=== PATIENT | female | born 1980 ===

== ENCOUNTER 2017-03-28 22:37 | Emergency (ER) | payer BC ==
[2017-03-28] MEDS ORDERED: Sodium Chloride 0.9% 10 ML Syringe FLUSH PRN (23:03)
[2017-03-28] MEDS ORDERED: Sodium Chloride 0.9% 1,000 ML IV ONE (23:03)
[2017-03-28] MEDS ORDERED: Ondansetron 4 MG/2 ML SDV IVPUSH ONE (23:03)
[2017-03-28] MEDS ORDERED: Sodium Chloride 0.9% 2.5 ML Syringe FLUSH PRN (23:03)
[2017-03-28] MEDS ORDERED: HYDROmorphone 2 MG/ML Syringe IVPUSH ONE (23:03)
--- NOTE | 2017-03-28 23:07 | EDM.PDOC ---
ED HPI GENERAL MEDICAL PROBLEM - General Chief Complaint: Abdominal Pain Stated Complaint: LOWER ABDOMINAL/VAGINAL PAIN Time Seen by Provider: 03/28/17 23:01 - History of Present Illness INITIAL COMMENTS - FREE TEXT/NARRATIVE: HISTORY AND PHYSICAL: History of present illness: Patient 36-year-old female presents with concern of 2 days of right lower quadrant abdominal pain she said associated nausea no vomiting no fever chills she denies trauma denies irregular bleeding vaginal discharge or urinary symptoms. She had no prior surgeries Review of systems: As per history of present illness and below otherwise all systems reviewed and negative. Past medical history: As per history of present illness and as reviewed below otherwise noncontributory. Surgical history: As per history of present illness and as reviewed below otherwise noncontributory. Social history: No reported history of drug or alcohol abuse. Family history: As per history of present illness and as reviewed below otherwise noncontributory. Physical exam: HEENT: Atraumatic, normocephalic, pupils reactive, negative for conjunctival pallor or scleral icterus, mucous membranes moist, throat clear, neck supple, nontender, trachea midline. Lungs: Clear to auscultation, breath sounds equal bilaterally, chest nontender. Heart: S1S2, regular, negative for clicks, rubs, or JVD. Abdomen: Soft, nondistended, tenderness in the right lower quadrant to deep palpation no rebound no guarding. Negative for masses or hepatosplenomegaly. Negative for costovertebral tenderness. Pelvis: Stable nontender. Genitourinary: Deferred. Rectal: Deferred. Extremities: Atraumatic, negative for cords or calf pain. Neurovascular unremarkable. Neuro: Awake, alert, oriented. Cranial nerves II through XII unremarkable. Cerebellum unremarkable. Motor and sensory unremarkable throughout. Exam nonfocal. Diagnostics: CBC CMP UA CT abdomen and pelvis with IV contrast Therapeutics: Normal saline 1 L bolus Zofran 4 mg IV Dilaudid 1 mg IV Impression: #1 right lower quadrant abdominal pain Definitive disposition and diagnosis as appropriate pending reevaluation and review of above. - Related Data Allergies Allergy/AdvReac Type Severity Reaction Status Date / Time No Known Allergies Allergy Verified 03/28/17 22:54 Home Meds: Home Meds . [No Known Home Meds] 03/28/17 [History] ED ROS GENERAL - Review of Systems Review Of Systems: ROS reveals no pertinent complaints other than HPI. ED EXAM, GENERAL - Physical Exam Exam: See Below (See dictation) Course - Vital Signs Last Recorded V/S: Last Vital Signs Temp 36.7 C 03/28/17 22:56 Pulse 98 03/28/17 22:56 Resp 14 03/28/17 22:56 BP 145/89 H 03/28/17 22:56 Pulse Ox 100 03/28/17 22:56 - Orders/Labs/Meds Orders: Active Orders 24 hr Category Date Time Status Abdomen Pelvis w Cont [CT] Stat Exams 03/28/17 23:03 Taken Pelvis Non OB Comp [US] Stat Exams 03/29/17 01:26 Taken CULTURE URINE [RM] Stat Lab 03/28/17 23:35 Received Sodium Chloride 0.9% [Saline Flush] Med 03/28/17 23:03 Active 10 ml FLUSH ASDIRECTED PRN Sodium Chloride 0.9% [Saline Flush] Med 03/28/17 23:03 Active 2.5 ml FLUSH ASDIRECTED PRN Saline Lock Insert [OM.PC] Stat Oth 03/28/17 23:03 Ordered Medication Orders Sodium Chloride (Saline Flush) 10 ml FLUSH ASDIRECTED PRN PRN Reason: Keep Vein Open Sodium Chloride (Saline Flush) 2.5 ml FLUSH ASDIRECTED PRN PRN Reason: Keep Vein Open Labs: Laboratory Tests 03/28/17 03/28/17 03/28/17 Range/Units 23:12 23:12 23:12 WBC 7.29 (4.0-11.0) K/uL RBC 4.27 L (4.30-5.90) M/uL Hgb 12.3 (12.0-16.0) g/dL Hct 35.7 L (36.0-46.0) % MCV 83.6 (80.0-98.0) fL MCH 28.8 (27.0-32.0) pg MCHC 34.5 (31.0-37.0) g/dL RDW Std Deviation 36.7 (28.0-62.0) fl RDW Coeff of Ledy 12 (11.0-15.0) % Plt Count 312 (150-400) K/uL MPV 9.30 (7.40-12.00) fL Neut % (Auto) 43.4 L (48.0-80.0) % Lymph % (Auto) 45.0 H (16.0-40.0) % Sanders % (Auto) 7.4 (0.0-15.0) % Eos % (Auto) 3.8 (0.0-7.0) % Baso % (Auto) 0.4 (0.0-1.5) % Neut # (Auto) 3.2 (1.4-5.7) K/uL Lymph # (Auto) 3.3 H (0.6-2.4) K/uL Sanders # (Auto) 0.5 (0.0-0.8) K/uL Eos # (Auto) 0.3 (0.0-0.7) K/uL Baso # (Auto) 0.0 (0.0-0.1) K/uL Nucleated RBC % 0.0 /100WBC Nucleated RBCs # 0 K/uL Sodium 137 (136-146) mmol/L Potassium 3.4 L (3.5-5.1) mmol/L Chloride 106 (98-110) mmol/L Carbon Dioxide 22 (21-31) mmol/L BUN 12 (6.0-23.0) mg/dL Creatinine 0.7 (0.6-1.5) mg/dL Est Cr Clr Drug Dosing 93.68 mL/min Estimated GFR (MDRD) > 60.0 ml/min Glucose 97 (60-110) mg/dL Calcium 9.2 (8.8-10.8) mg/dL Total Bilirubin 0.3 (0.1-1.5) mg/dL AST 15 (5-40) IU/L ALT 12 (8-54) IU/L Alkaline Phosphatase 55 (40-150) Total Protein 7.9 (6.0-8.0) g/dL Albumin 4.1 (3.5-5.0) g/dL Globulin 3.8 H (2.0-3.5) g/dL Albumin/Globulin Ratio 1.1 L (1.3-2.8) HCG, Qual NEGATIVE (NEG) Urine Color Urine Appearance Urine pH (5.0-8.0) Ur Specific Richardson (1.001-1.035) Urine Protein (NEGATIVE) mg/dL Urine Glucose (UA) (NEGATIVE) mg/dL Urine Ketones (NEGATIVE) mg/dL Urine Occult Blood (NEGATIVE) Urine Nitrite (NEGATIVE) Urine Bilirubin (NEGATIVE) Urine Urobilinogen (<2.0) EU/dL Ur Leukocyte Esterase (NEGATIVE) Urine RBC (0-2/HPF) Urine WBC (0-5/HPF) Ur Epithelial Cells (NONE-FEW) Urine Bacteria (NEGATIVE) 03/28/17 Range/Units 23:35 WBC (4.0-11.0) K/uL RBC (4.30-5.90) M/uL Hgb (12.0-16.0) g/dL Hct (36.0-46.0) % MCV (80.0-98.0) fL MCH (27.0-32.0) pg MCHC (31.0-37.0) g/dL RDW Std Deviation (28.0-62.0) fl RDW Coeff of Ledy (11.0-15.0) % Plt Count (150-400) K/uL MPV (7.40-12.00) fL Neut % (Auto) (48.0-80.0) % Lymph % (Auto) (16.0-40.0) % Sanders % (Auto) (0.0-15.0) % Eos % (Auto) (0.0-7.0) % Baso % (Auto) (0.0-1.5) % Neut # (Auto) (1.4-5.7) K/uL Lymph # (Auto) (0.6-2.4) K/uL Sanders # (Auto) (0.0-0.8) K/uL Eos # (Auto) (0.0-0.7) K/uL Baso # (Auto) (0.0-0.1) K/uL Nucleated RBC % /100WBC Nucleated RBCs # K/uL Sodium (136-146) mmol/L Potassium (3.5-5.1) mmol/L Chloride (98-110) mmol/L Carbon Dioxide (21-31) mmol/L BUN (6.0-23.0) mg/dL Creatinine (0.6-1.5) mg/dL Est Cr Clr Drug Dosing mL/min Estimated GFR (MDRD) ml/min Glucose (60-110) mg/dL Calcium (8.8-10.8) mg/dL Total Bilirubin (0.1-1.5) mg/dL AST (5-40) IU/L ALT (8-54) IU/L Alkaline Phosphatase (40-150) Total Protein (6.0-8.0) g/dL Albumin (3.5-5.0) g/dL Globulin (2.0-3.5) g/dL Albumin/Globulin Ratio (1.3-2.8) HCG, Qual (NEG) Urine Color YELLOW Urine Appearance CLEAR Urine pH 6.0 (5.0-8.0) Ur Specific Richardson <= 1.005 (1.001-1.035) Urine Protein NEGATIVE (NEGATIVE) mg/dL Urine Glucose (UA) NEGATIVE (NEGATIVE) mg/dL Urine Ketones NEGATIVE (NEGATIVE) mg/dL Urine Occult Blood NEGATIVE (NEGATIVE) Urine Nitrite NEGATIVE (NEGATIVE) Urine Bilirubin NEGATIVE (NEGATIVE) Urine Urobilinogen 0.2 (<2.0) EU/dL Ur Leukocyte Esterase MODERATE (NEGATIVE) Urine RBC 0-2 (0-2/HPF) Urine WBC 0-4 (0-5/HPF) Ur Epithelial Cells OCCASIONAL (NONE-FEW) Urine Bacteria FEW (NEGATIVE) Meds: Medications Generic Name Dose Route Start Last Admin Trade Name Freq PRN Reason Stop Dose Admin Sodium Chloride 10 ml 03/28/17 23:03 Saline Flush FLUSH ASDIRECTED PRN Keep Vein Open Sodium Chloride 2.5 ml 03/28/17 23:03 Saline Flush FLUSH ASDIRECTED PRN Keep Vein Open Discontinued Medications Generic Name Dose Route Start Last Admin Trade Name Freq PRN Reason Stop Dose Admin Hydromorphone HCl 1 mg 03/28/17 23:03 03/28/17 23:30 Dilaudid IVPUSH 03/28/17 23:04 1 mg ONETIME ONE Administration Sodium Chloride 1,000 mls @ 999 mls/hr 03/28/17 23:03 03/28/17 23:28 Normal Saline IV 03/29/17 00:03 999 mls/hr STAT ONE Administration Iopamidol 70 ml 03/29/17 00:13 03/29/17 00:13 Isovue Multipack-370 (76%) IVPUSH 03/29/17 00:14 70 ml ONETIME STA Administration Ondansetron HCl 4 mg 03/28/17 23:03 03/28/17 23:29 Hellen IVPUSH 03/28/17 23:04 4 mg ONETIME ONE Administration Departure - Departure Time of Disposition: 02:38 Disposition: Home, Self-Care 01 Condition: Good Clinical Impression: Ovarian cyst - Discharge Information Referrals: Dalila Álvarez MD [Primary Care Provider] - Forms: ED Department Discharge Additional Instructions: The following information is given to patients seen in the emergency department who are being discharged to home. This information is to outline your options for follow-up care. We provide all patients seen in our emergency department with a follow-up referral. The need for follow-up, as well as the timing and circumstances, are variable depending upon the specifics of your emergency department visit. If you don't have a primary care physician on staff, we will provide you with a referral. We always advise you to contact your personal physician following an emergency department visit to inform them of the circumstance of the visit and for follow-up with them and/or the need for any referrals to a consulting specialist. The emergency department will also refer you to a specialist when appropriate. This referral assures that you have the opportunity for followup care with a specialist. All of these measure are taken in an effort to provide you with optimal care, which includes your followup. Under all circumstances we always encourage you to contact your private physician who remains a resource for coordinating your care. When calling for followup care, please make the office aware that this follow-up is from your recent emergency room visit. If for any reason you are refused follow-up, please contact the [facility] emergency department at and asked to speak to the emergency department charge nurse. [facility] Primary [facility] - Women's Health [address] [place] [id number] Hydrocodone as prescribed follow-up primary medical doctor and/or MANAGER RESIDENTIAL as discussed return as needed as discussed - My Orders Last 24 Hours: My Active Orders 03/28/17 23:03 Abdomen Pelvis w Cont [CT] Stat Sodium Chloride 0.9% [Saline Flush] 10 ml FLUSH ASDIRECTED PRN Sodium Chloride 0.9% [Saline Flush] 2.5 ml FLUSH ASDIRECTED PRN Saline Lock Insert [OM.PC] Stat 03/28/17 23:35 CULTURE URINE [RM] Stat 03/29/17 01:26 Pelvis Non OB Comp [US] Stat - Assessment/Plan Last 24 Hours: My Active Orders 03/28/17 23:03 Abdomen Pelvis w Cont [CT] Stat Sodium Chloride 0.9% [Saline Flush] 10 ml FLUSH ASDIRECTED PRN Sodium Chloride 0.9% [Saline Flush] 2.5 ml FLUSH ASDIRECTED PRN Saline Lock Insert [OM.PC] Stat 03/28/17 23:35 CULTURE URINE [RM] Stat 03/29/17 01:26 Pelvis Non OB Comp [US] Stat
[2017-03-28 23:43] LABS: CHLORIDE,CL 106 mmol/L (98-110); SODIUM,NA 137 mmol/L (136-146)
[2017-03-29] MEDS ORDERED: Iopamidol 755 MG/ML 500 ML Multipack Bottle IVPUSH STA (00:13)
[2017-03-29 02:40] VITALS: BP 123/71
--- NOTE | 2017-03-29 14:44 | CT ---
EXAM DATE: 03/28/17 PATIENT'S AGE: 36 Patient: NAVI SUBRAMANIAN Facility: [place], [place] Site . Site : 1980 Study: CT Abdomen/Pelvis W CONT [id number]/28/2017 12:31:14 AM Ordering Physician: Franky Rojo Final Report: INDICATION: Abdominal pain, right lower quadrant pain since . TECHNIQUE: CT abdomen and pelvis acquired with 70 mL of Isovue 370 IV contrast. COMPARISON: None. FINDINGS: Lower chest: Unremarkable. Liver: Unremarkable. Spleen: Unremarkable. Pancreas: Unremarkable. Gallbladder and bile ducts: Unremarkable. Kidneys: Unremarkable. Adrenal glands: Unremarkable. GI tract: Unremarkable. Appendix is normal. No free air. Vascular structures: Unremarkable. Lymph nodes: Unremarkable. Pelvic Organs: Collapsing cyst in the left ovary measures 1.5 cm. Uterus, bilateral adnexal regions and urinary bladder are otherwise unremarkable. Trace pelvic free fluid. Bones: No acute abnormality. IMPRESSION: No acute intra-abdominal or pelvic abnormality. Dictated by Ez Aranda MD @ 03/29/2017 1:03:03 AM Dictated by: Ez Aranda MD @ 03/29/2017 01:03:34 (Electronic Signature) Report Signed by Proxy. [facility]LAND[facility]
--- NOTE | 2017-03-29 15:08 | US ---
EXAM DATE: 03/28/17 PATIENT'S AGE: 36 Patient: NAVI SUBRAMANIAN Facility: [place], [place] Site . Site : 1980 Study: US Pelvis [id number]/28/2017 1:58:11 AM Ordering Physician: Franky Rojo Final Report: INDICATION: Abdominal pain. TECHNIQUE: Ultrasound pelvis transvaginal for better assessment or to better visualize the endometrium. Real-time sonographic images with spectral and color Doppler imaging of the ovaries were obtained. COMPARISON: CT abdomen pelvis same day. FINDINGS: Uterus measures 7.7 x 4.5 x 5.4 cm. No discrete uterine mass. Possible small fibroid in the posterior fundus. This measures approximately 1.3 cm. The endometrial stripe measures 13 mm. No endometrial mass or fluid demonstrated. Right ovary is 2.8 x 1.9 x 2.4 cm and is within normal limits. Normal-appearing color Doppler flow in the right ovary. Left ovary is 4 x 2.7 x 3.7 cm. A heterogeneous hypoechoic focus in the left ovary measures 1.4 cm. Normal- appearing color Doppler flow in the left ovary. Trace pelvic free fluid. IMPRESSION: Small collapsing cyst or follicle in the left ovary measuring 1.4 cm. Possible small fibroid in the posterior uterine fundus. Otherwise unremarkable pelvic ultrasound. Dictated by Ez Aranda MD @ 03/29/2017 2:08:41 AM Dictated by: Ez Aranda MD @ 03/29/2017 02:08:55 (Electronic Signature) Report Signed by Proxy. MOLLY
== END 2017-03-29 02:46 | disposition home or self-care (01) ==
LOC: MW.ED 22:37
DX: N83.202 Unspecified ovarian cyst, left side (principal)
CPT/HCPCS: 36415; 74177; 76856; 80053; 81001; 84703; 85025; 87086; 96361; 96374; 96375; 99284; J1170; J2405; J7040; Q9967; 99283